=== PATIENT | female | born 1980 | race Two or more races ===

== ENCOUNTER 2020-05-24 07:36 | Day surgery (SDC) | payer OTHER ==
[2020-05-23 16:08] VITALS: BMI 28.6
[2020-05-24] MEDS ORDERED: DEXAMETHASONE SOD PHOSPHATE 4 MG/1 ML VIAL ONE (09:00)
[2020-05-24] MEDS ORDERED: MIDAZOLAM HCL 2 MG/2 ML SINGLE DOSE VIAL ONE (09:01)
[2020-05-24] MEDS ORDERED: PROPOFOL 20 ML ONE (09:01)
[2020-05-24] MEDS ORDERED: IBUPROFEN 800 MG/8 ML IJ IVPB PRN (10:37)
[2020-05-24] MEDS ORDERED: ONDANSETRON 4 MG/2 ML VIAL IVPUSH PRN (10:37)
[2020-05-24] MEDS ORDERED: oxyCODONE HCL 5 MG TABLET PO PRN (10:37)
[2020-05-24] MEDS ORDERED: IBUPROFEN 600 MG TABLET (FP) PO PRN (10:37)
--- NOTE | 2020-05-24 10:37 | HP ---
History & Physical Update - History History: No Change - Physical Physical: No Change - Assessment Assessment: No Change - Plan Plan: No Change (Consent signed and witnessed)
--- NOTE | 2020-05-24 10:38 | OP ---
Operative Note - Note: Operative Date: 05/24/20 Pre-Operative Diagnosis: 39yo P3 with menorrhagia, submucosal fibroid Operation: Hysteroscopy, Myomectomy, D&C Findings: Submucosal fibroid Post-Operative Diagnosis: Same as Pre-op Surgeon: Maddie Mcguire Anesthesiologist/POLICE JUDGE: Leila Gannon Anesthesia: MAC Specimens Removed: Submucosal fibroid, Endometrial curretings Estimated Blood Loss (mls): 5 Instrument used (Debridements only): Symphion Hysteroscope Drains & Tubes with Location: 200cc Fluid deficit Drains, Volume Out (mls): 450 Fluid Volume Replaced (mls): 800 Operative Report Dictated: Yes
[2020-05-24] MEDS ORDERED: ELECTROLYTE-148 SOLN 1,000 ML IV SCH (10:45)
[2020-05-24] MEDS ORDERED: LACTATED RINGERS SOLUTION 1,000 ML IV SCH (11:30)
[2020-05-24 15:27] VITALS: PULSE 58
[2020-05-24 15:34] VITALS: BP 112/68; TEMP 97.9
--- NOTE | 2020-05-24 20:55 | OP ---
DATE OF OPERATION: 05/24/2020 PREOPERATIVE DIAGNOSIS: A 39-year-old para 3 with menorrhagia, submucosal fibroid. OPERATION: Hysteroscopy and myomectomy dilation and curettage. FINDINGS: Submucosal fibroids resected. POSTOPERATIVE DIAGNOSIS: A 39-year-old para 3 with menorrhagia, submucosal fibroid. SURGEON: Abraham Mcguire MD. ANESTHESIOLOGIST: Leila Gannon MD. ANESTHESIA: MAC DESCRIPTION OF OPERATIVE PROCEDURE: After insuring informed consent, patient is brought is brought to the operating room where she was placed in dorsal lithotomy position. After general anesthesia was achieved, perineum and vagina were prepped and draped in sterile fashion. Symphion hysteroscope was assembled, primed, and white balanced. The Tanner retractors were placed into the vagina. Anterior cervical lip was articulated with single-toothed tenaculum and cervix was gradually dilated with Henderson dilators to accommodate 6.3 mm hysteroscope. The hysteroscope was introduced into the uterus without any difficulty. The small fibroid and overgrown endometrial lining was noted. The resectoscope was introduced through the Symphion resectoscope, and the fibroid was resected without any difficulty as well as endometrial curettings were collected as well. Subsequently all instruments were removed from the uterus, cervix, and vagina. Excellent hemostasis was noted. All sponge and instruments were correct x2. Estimated blood loss was 5 mL. Patient received 800 mL of IV fluid, put out 450 mL of urine through the straight catheter, and fluid deficit was noted to be 200 mL at the end of the procedure. Patient tolerated procedure well and was brought to recovery room in stable condition. ABRAHAM MCGUIRE M.D. [id number]
--- NOTE | 2020-05-25 14:01 | PATH ---
Surgical Pathology Report Patient Name: GERI MAYA Med. Rec. #: [id number] /Age/Gender: 1980 (Age: 39) / F Account: [id number] Location: [facility] Taken: 05/24/2020 Received: 05/24/2020 Reported: 05/25/2020 Physicians: Maddie Mcguire M.D. Specimen(s) [facility] History Abnormal uterine bleeding Final Diagnosis FIBROIDS AND ENDOMETRIAL SHAVINGS: ENDOMETRIAL POLYP. SEPARATE SECRETORY TYPE ENDOMETRIUM. RARE FRAGMENTS OF SMOOTH MUSCLE PRESENT, MAY REPRESENT A SUBMUCOSAL LEIOMYOMA IN THE PROPER SETTINGS. Electronically Signed Andrey Mendez M.D. Gross Description Received in formalin labeled "fibroid and endometrial shavings," is a 2.0 x 1.8 x 0.3 cm aggregate of kramer tissue shavings. The formalin is filtered and the specimen is entirely submitted in one cassette. /05/24/2020 [facility]05/24/2020
== END 2020-05-24 15:15 | disposition home or self-care (01) ==
LOC: JASU-SURG 07:36
PROVIDERS: ATTEND Obstetrics & Gynecology
PROC: 0UJD8ZZ Inspection of Uterus and Cervix, Via Natural or Artificial Opening Endoscopic (ICD-10-PCS; 2020-05-24)
PROC: 0UB98ZZ Excision of Uterus, Via Natural or Artificial Opening Endoscopic (ICD-10-PCS; principal; 2020-05-24 09:30)
PROC: 0UDB7ZX Extraction of Endometrium, Via Natural or Artificial Opening, Diagnostic (ICD-10-PCS; 2020-05-24 09:30)
DX: N92.0 Excessive and frequent menstruation with regular cycle (principal); D25.0 Submucous leiomyoma of uterus
CPT/HCPCS: 36415; 84703; 86850; 86900; 86901; 88305-TC; 94760